=== PATIENT | female | born 1945 | race Caucasian/White ===

== ENCOUNTER 2017-10-20 13:17 | Emergency (ER) | payer OTHER ==
[~2017-10-20] VITALS: Ht 160 cm; Wt 89.8 kg
[~2017-10-20 13:17] MED LIST: ACETAMINOOPHEN-1 TAB PO; CIPRO750 MG PO; CLONAZEPAM1 MG PO; DOCUSATE SODIU100 MG PO; FAMOTIDINE20 MG PO; METHYLPRED4 MG/DOSE- PO; NEURONTIN PO; PERCOCET 5/3251 TAB PO
[2017-10-20] MEDS ORDERED: NEURONTIN800 MG (13:36)
== END 2017-10-20 16:03 | disposition home or self-care (01) ==
LOC: ER 13:17
DX: M25.561 Pain in right knee (principal)

== ENCOUNTER 2018-02-13 17:58 | Emergency (ER) | payer OTHER ==
[~2018-02-13] VITALS: Ht 157.5 cm; Wt 91.2 kg
[~2018-02-13 17:58] MED LIST changes: +NEURONTIN800 MG
== END 2018-02-13 20:47 | disposition home or self-care (01) ==
LOC: ER 17:58
DX: N39.0 Urinary tract infection, site not specified (principal); R30.0 Dysuria; M13.862 Other specified arthritis, left knee; M13.861 Other specified arthritis, right knee; M25.562 Pain in left knee; M25.561 Pain in right knee